=== PATIENT | male | born 1950 | race Caucasian/White ===

== ENCOUNTER → 2017-04-16 | Outpatient (CLI) | payer OTHER, MEDICARE | LOC: CIMAGING 14:37 | PROVIDERS: ATTEND Internal Medicine | DX: R05 Cough (principal); R09.89 Other specified symptoms and signs involving the circulatory and respiratory systems; N28.9 Disorder of kidney and ureter, unspecified; Z85.46 Personal history of malignant neoplasm of prostate | CPT/HCPCS: 71046-PO ==

== ENCOUNTER → 2017-05-07 | Outpatient (CLI) | payer OTHER, MEDICARE | PROVIDERS: ATTEND Internal Medicine | DX: R13.10 Dysphagia, unspecified (principal); R05 Cough; R09.89 Other specified symptoms and signs involving the circulatory and respiratory systems; I10 Essential (primary) hypertension; Z85.46 Personal history of malignant neoplasm of prostate | CPT/HCPCS: 74230; 92611; G8996; G8997; G8998 ==

== ENCOUNTER 2018-06-11 05:27 | Observation (INO) | payer OTHER, MEDICARE ==
--- NOTE | 2018-06-10 16:47 | PDHPUP ---
History & Physical Update H&P update statement: This history and physical update is based on an assessment of the patient which was completed after admission or registration (within 24 hours), but prior to the surgery/procedure. H&P update: H&P reviewed & patient examined, no change in patient's condition since H&P completed
[2018-06-11] MEDS ORDERED: ceFAZolin 2 GM/DEXTROSE 100 ML IV ONE (05:34)
[2018-06-11] MEDS ORDERED: LR 1,000 ML IV ONE (05:38)
[2018-06-11] MEDS ORDERED: BUPIVACAINE 0.5% 30 ML SDV ONE (06:55)
[2018-06-11] MEDS ORDERED: ROCURONIUM 100 MG/10 ML VIAL ONE (07:06)
[2018-06-11] MEDS ORDERED: fentaNYL 100 MCG/2 ML INJ ONE ×2 (07:06)
[2018-06-11] MEDS ORDERED: ONDANSETRON 4 MG/2 ML VIAL ONE (07:07)
[2018-06-11] MEDS ORDERED: SUGAMMADEX SODIUM 200 MG/2 ML VIAL IVP ONE (07:07)
[2018-06-11] MEDS ORDERED: DEXAMETHASONE 4 MG/ML VIAL ONE (07:07)
[2018-06-11] MEDS ORDERED: PROPOFOL 200 MG/20 ML VIAL ONE (07:07)
[2018-06-11] MEDS ORDERED: LIDOCAINE 2% 2 ML INJ ONE ×2 (07:08)
[2018-06-11] MEDS ORDERED: PHENYLEPHRINE 10 MG/ML SDV ONE (07:13)
[2018-06-11] MEDS ORDERED: HYDROCODONE/APAP 5/325 TAB PO PRN (08:00)
[2018-06-11] MEDS ORDERED: NALOXONE HCL 0.4 MG/ML INJ IVP PRN ×2 (08:00→10:17)
[2018-06-11] MEDS ORDERED: fentaNYL 100 MCG/2 ML INJ IVP PRN (08:00)
[2018-06-11] MEDS ORDERED: ALBUTEROL 3 ML DEYVIAL IH PRN (08:00)
[2018-06-11] MEDS ORDERED: PHENYLEPHRINE HCL 100 MCG/ML SYR IVP PRN (08:00)
[2018-06-11] MEDS ORDERED: LABETALOL HCL 5 MG/ML 20 ML MDV IVP PRN (08:00)
[2018-06-11] MEDS ORDERED: ACETAMINOPHEN 500 MG TAB PO PRN (08:00)
[2018-06-11] MEDS ORDERED: ONDANSETRON 4 MG/2 ML VIAL IVP PRN ×2 (08:00→10:14)
[2018-06-11] MEDS ORDERED: PROMETHAZINE HCL 25 MG/ML INJ IVP PRN (08:00)
[2018-06-11] MEDS ORDERED: HYDROmorphONE/DILAUDID 1 MG/ML INJ IVP PRN (08:00)
[2018-06-11] MEDS ORDERED: DIAZEPAM 5 MG/ML 1 ML SYR IVP PRN (08:00)
[2018-06-11] MEDS ORDERED: METOCLOPRAMIDE 10 MG/2 ML VIAL IVP PRN (08:00)
[2018-06-11] MEDS ORDERED: oxyCODONE IR 5 MG TAB PO PRN (08:00)
--- NOTE | 2018-06-11 08:00 | PDANEPAE ---
ANE History of Present Illness robotic prostatectomy ANE Past Medical History - Cardiovascular History Hx Hypertension: Yes Hx Arrhythmias: No Hx Chest Pain: No Hx Coronary Artery / Peripheral Vascular Disease: No Hx CHF / Valvular Disease: No Hx Palpitations: No - Pulmonary History Hx COPD: No Hx Asthma/Reactive Airway Disease: No Hx Recent Upper Respiratory Infection: No Hx Oxygen in Use at Home: No Hx Sleep Apnea: No Sleep Apnea Screening Result - Last Documented: Positive - Neurologic History Hx Cerebrovascular Accident: No Hx Seizures: No Hx Dementia: No - Endocrine History Hx Diabetes: No - Renal History Hx Renal Disorders: No - Liver History Hx Hepatic Disorders: No - Neurological & Psychiatric Hx Hx Neurological and Psychiatric Disorders: No - Cancer History Hx Cancer: Yes Cancer History Comment: new dx prostate cancer - Congenital Disorder History Hx Congenital Disorders: No - GI History Hx Gastrointestinal Disorders: No - Other Health History Other Health History: none - Chronic Pain History Chronic Pain: Yes (knees) - Surgical History Prior Surgeries: 2010 acl repaired. 2016 right shoulder ANE Review of Systems Review of Systems: - Exercise capacity METS (RN): 6 METS ANE Patient History - Allergies Allergies/Adverse Reactions: No Known Allergies Allergy (Verified 05/12/18 12:18) - Home Medications Home medications: home medication list seen and reviewed Home Medications: Chlorthalidone [Chlorthalidone 25 mg (*)] 12.5 mg PO DAILY 05/04/18 [Last Taken 06/10/18] Irbesartan [Avapro 150 mg (*)] 300 mg PO DAILY 05/04/18 [Last Taken 06/10/18] Multivitamins [Multivitamin (*)] 1 each PO DAILY 05/04/18 [Last Taken 05/21/18] amLODIPine BESYLATE [Norvasc 10 mg (*)] 10 mg PO HS 05/04/18 [Last Taken ] Levothyroxine [Synthroid 50 mcg (*)] 50 tab PO DAILY 06/10/18 [Last Taken 1 Day Ago ~06/09/18] - NPO status NPO Since - Liquids (Date): 06/10/18 NPO Since - Liquids (Time): 21:00 NPO Since - Solids (Date): 06/09/18 NPO Since - Solids (Time): 00:01 - Smoking Hx Smoking Status: Never smoked - Family Anes Hx Family Hx Anesthesia Complications: none ANE Labs/Vital Signs - Vital Signs Blood Pressure: 104/70 Heart Rate: 65 Respiratory Rate: 16 O2 Sat (%): 90 Height: 167.64 cm Weight: 73.936 kg ANE Physical Exam - Airway Neck exam: FROM Mallampati Score: Class 1 Mouth exam: normal dental/mouth exam - Pulmonary Pulmonary: no respiratory distress - Cardiovascular Cardiovascular: regular rate and rhythym - ASA Status ASA Status: II ANE Anesthesia Plan Anesthesia Plan: general endotracheal anesthesia Regional Anesthesia: TAP block Urgent/Emergent Case: Karl rahman completed preop but documented later for safe timely pt care
--- NOTE | 2018-06-11 08:00 | POSTANESTH ---
Post Anesthetic Evaluation Cardiovascular Status: Normal, Stable Respiratory Status: Normal, Stable Level of Consciousness/Mental Status: Can Participate in Eval, Mildly Sleepy, Arousable Pain Control: Adequate, Prn Tx Ordered Nausea/Vomiting Control: Adequate, Prn Tx Ordered Complications Possibly Related to Anesthesia: None Noted
[2018-06-11] MEDS ORDERED: HYDROmorphONE/DILAUDID 2 MG/ML INJ ONE (08:17)
[2018-06-11] MEDS ORDERED: ROPIVACAINE HCL 150 MG/30 ML INJ ONE (09:05)
[2018-06-11] MEDS ORDERED: THROMBIN(HUM PLAS)/FIBRINOG/CA 5 ML VIAL TP ONE (09:29)
--- NOTE | 2018-06-11 10:11 | POSTOPPROG ---
Post Op Note Date of Operation: 06/11/18 (dictated) Surgeon: Gordy Cota Metal Die Finisher: Melissa Anesthesia: GET(General Endotracheal), Other (Specify) (TAP) Pre-op Diagnosis: prostate cancer Procedure: RA-RRP and PLND Inf/Abcess present in the surg proc area at time of surgery?: No EBL: 50-100 Drains: Param Stanford Specimen(s): prostate and nodes
[2018-06-11] MEDS ORDERED: ONDANSETRON DISINTEGRATING 4 MG TAB PO PRN (10:14)
[2018-06-11] MEDS ORDERED: ACETAMINOPHEN 325 MG TAB PO PRN (10:14)
[2018-06-11] MEDS ORDERED: ZOLPIDEM TARTRATE 5 MG TAB PO PRN (10:14)
[2018-06-11] MEDS ORDERED: HYDROmorphONE/DILAUDID 6 MG/30 ML PCA IV PRN (10:17)
--- NOTE | 2018-06-11 10:33 | GOP ---
[f rep st] OPERATIVE REPORT DATE OF OPERATION: 06/11/2018 SURGEON: Gordy Cota MD PROJECTS MANAGER: Vero Torres CFA. ANESTHESIA: Postop anesthesia was a small amount of local, but then he had a TAP procedure provided by the anesthesiologist. PREOPERATIVE DIAGNOSIS: Prostate cancer with a PSA just above 10. POSTOPERATIVE DIAGNOSIS: Prostate cancer with a PSA just above 10. PROCEDURE PERFORMED: Radical robotic-assisted prostatectomy and bilateral pelvic lymph node dissecti on. FINDINGS: SPECIMENS: Specimens sent. ESTIMATED BLOOD LOSS: 150 cc. DESCRIPTION OF PROCEDURE: After undergoing general anesthesia, and being prepped and draped with a n ormal timeout, we placed a Veress needle in the supraumbilical site and insufflated his abdomen to 15 mmHg pressure. Then at that point, the camera port, 3 robot arm ports, and an assistant mechanic port were p laced, all under direct vision in the standard port profile. Inspection revealed he had some colonic adhesions into the pelvis, and those were taken down sharply. I could identify the vas deferens as they coursed over the pelvic brim. The rectum was pulled out of the pelvis gently and stationed ther e with a ProGrasp, just without grasping. Then, I incised the peritoneum, and identified the ampulla and vas deferens on the right and left sides. They were divided. I then identified the seminal ves icles, and developed a plane between the rectum and the prostate posteriorly, and then the plane betw een the seminal vesicles and the bladder anteriorly. Hemostasis was provided with Hem-o-reggie. At nancy t point, there was no suggestion of injury to the colon and no cystotomy on this dissection. I dropp ed the bladder down in a normal fashion, incised the endopelvic fascia on the right and left sides, a nd identified the puboprostatic ligaments, which were taken down sharply. The deep dorsal vein was l igated with two #0 Vicryl sutures in an M-stitch technique. Then, I went to the bladder neck. I did de-fat the anterior part of the prostate. Then at that point, I incised the bladder neck anteriorly and identified the catheter. He had just a button of intravesical lobe. That was dissected off and remained with the specimen. The plane between the bladder and the prostate was dissected out. I th en managed the right and left vascular bundles. I attempted to preserve the left vascular bundle on the left side, but, because of the MRI findings, I went a bit lateral and took part of the neurovascu lar bundle on the right. Hemostasis was provided with Hem-o-reggie. I identified the anterior prostate apex and divided that, and divided the urethra. That was brought out of this operative site. Hemos tasis was noted after decreasing the intraabdominal pressure. Then at that point, a Diallo stitch of 3-0 Monocryl was used to perform that. Then, I used a 3-0 Monocryl to do the urethrovesical anastomo sis, bridged with a Barnett catheter, irrigated, and noted it to be watertight without tension. Then, because of the right findings, he did have some inflammation on the right side, so I elected to do a pelvic lymph node dissection using the margin of the mid aspect of the external iliac vein. The dept h of the dissection was the obturator nerve. Hemostasis and lymphostasis were provided with Hem-o-lo k. The right and left specimens were sent separately. At the end of the procedure, there was no ble eding identified. Bladder irrigated free without any extravasation. A Param-Stanford drain was place d to the space of Retzius and brought out through the 8 mm camera port. I then closed the assistant mechanic port with a fascial closure device with 0 Vicryl. I opened the camera port to the point I could deliv er the specimen out. I closed the linea alba, anterior rectus sheath, and peritoneum with a running 0 Vicryl. Then, hemostasis was noted. Subcutaneous tissue was approximated with 4-0 Monocryl. The drain was stationary with a 3-0 silk suture. COMPLICATIONS: None. DRAINS: Catheter draining well. DISPOSITION: He will be admitted for postop care. Specimens sent to Pathology. I will discuss the findings with his . /[id number]/MODL
[2018-06-11] MEDS: oxyCODONE IR 5 MG TAB PO PRN (12:32)
[2018-06-11] MEDS: ACETAMINOPHEN 325 MG TAB PO SCH ×2 (12:37→20:53)
[2018-06-11] MEDS: D5W 1/2 NS 1,000 ML IV SCH ×2 (12:44→22:48)
[2018-06-11] MEDS: MULTIVITAMINS 1 EACH TAB PO SCH (14:20)
[2018-06-11] MEDS: IRBESARTAN 150 MG TAB PO SCH (14:20)
[2018-06-11] MEDS: CHLORTHALIDONE 25 MG TAB PO SCH (14:20)
--- NOTE | 2018-06-11 16:04 | SOAPPROG ---
SOAP Progress Note Assessment/Plan: Assessment: Adenocarcinoma of prostate Acute PO exam Plan: continue care, will see in AM 06/11/18 16:03 Subjective: walked and doing well Objective: Vital Signs Temp Pulse Resp BP Pulse Ox 36.8 C 82 18 109/76 92 06/11/18 12:00 06/11/18 13:05 06/11/18 13:05 06/11/18 14:20 06/11/18 13:05 06/10/18 06/11/18 06/12/18 05:59 05:59 05:59 Intake Total 1400 Output Total 465 Balance 935 Physical Exam - Physical Exam General Appearance: alert Respiratory: No respiratory distress Cardiac/Chest: regular rate, rhythm Abdomen: non-tender Back: No CVA tenderness Neuro/Psych: alert, oriented x 3 ICD10 Worksheet Patient Problems: Problems Problem Status Onset Adenocarcinoma of prostate Acute
[2018-06-12] MEDS: ACETAMINOPHEN 325 MG TAB PO SCH ×3 (00:44→12:00)
[2018-06-12 05:22] LABS: PLATELET COUNT 242 10^3/uL (150-400)
[2018-06-12] MEDS ORDERED: LEVOTHYROXINE 50 MCG TAB PO SCH (06:00)
[2018-06-12] MEDS: MULTIVITAMINS 1 EACH TAB PO SCH ×2 (08:10→08:24)
[2018-06-12] MEDS: IRBESARTAN 150 MG TAB PO SCH (08:11)
[2018-06-12] MEDS: CHLORTHALIDONE 25 MG TAB PO SCH (08:12)
--- NOTE | 2018-06-12 09:21 | SOAPPROG ---
SOAP Progress Note Assessment/Plan: Assessment: Adenocarcinoma of prostate Acute PO 1 exam Plan: continue care,consider DC later 06/12/18 09:20 Subjective: doing well Objective: Vital Signs Temp Pulse Resp BP Pulse Ox 36.7 C 72 16 94/66 L 93 06/12/18 07:35 06/12/18 07:35 06/12/18 07:35 06/12/18 07:35 06/12/18 07:35 Laboratory Results 06/12/18 04:30 06/12/18 04:30 06/11/18 06/12/18 06/13/18 05:59 05:59 05:59 Intake Total 2180 250 Output Total 2815 Balance -635 250 Physical Exam - Physical Exam General Appearance: alert Neck: supple Respiratory: No respiratory distress Cardiac/Chest: regular rate, rhythm Abdomen: non-tender Back: No CVA tenderness Skin: warm/dry Extremities: No calf tenderness, No Sherry's sign Neuro/Psych: alert, oriented x 3 ICD10 Worksheet Patient Problems: Problems Problem Status Onset Adenocarcinoma of prostate Acute
[2018-06-12 11:16] VITALS: BP 101/74
[2018-06-12] MEDS: oxyCODONE IR 5 MG TAB PO PRN ×2 (11:59→15:38)
--- NOTE | 2018-06-12 16:20 | ASDISCHSUM ---
Discharge Information Plan Status:Home with No Needs Medically Cleared to Leave:06/12/2018 Discharge Date:06/12/2018 CM D/C Disposition:Home, Routine, Self-Care ADT D/C Disposition: Projected Discharge Date:06/12/2018 Transportation at D/C:Family Discharge Delay Reason: Follow-Up Date:06/12/2018 Discharge Slot: Final Diagnosis: Placement Information Patient Contact Information Contact Name:VENTURA Relationship: Address:[address] Work Phone: City:[place] Phone: State/Zip Code:[place] [address] Email: Financial Information Financial Class:Medicare Primary Plan Desc:MEDICARE OUTPATIENT Primary Plan Number:[id number] Secondary Plan Desc:JOANNE/[employer] SUPPLEMENT Secondary Plan Number:[id number] Assessment Information LACE LACE Length of stay for Answers: Less than 1 day current admission Acuity / Level of Answers: No Care: Did the patient have an inpatient admission? Comorbidities - select Answers: Any tumor (including all that apply lymphoma or leukemia) Opioid dependence / Chronic pain Other Notes: HTN # of Emergency department Answers: 0 visits in the last 6 months Score: 7 Date Signed: 06/12/2018 04:19 PM Electronically Signed By:STEVIE Rocha Case Management Discharge Plan Note Case Management Discharge Discharge Order Complete? Answers: Yes Patient to Obtain Answers: via Family Medications Transportation Arranged Answers: Family/Friends Discharge Comments Notes: Pt is s/p a planned prostatectomy for prostate CA. He is discharging home independently with his and no CM needs. Date Signed: 06/12/2018 04:18 PM Electronically Signed By:STEVIE Rocha Intervention Information Intervention Type:*HIDALGO-Signed Date of Service:06/11/2018 02:28 PM Patient Type:Observation Staff Member:Malu Baum Hours: Discipline: Severity: Comment:
--- NOTE | 2018-06-12 18:02 | GDS ---
[f rep st] DISCHARGE SUMMARY PREOPERATIVE DIAGNOSIS: Prostate cancer. POSTOPERATIVE DIAGNOSIS: Prostate cancer. HISTORY: This is a pleasant male who was evaluated in our office for an elevated PSA. He was found have prostate cancer on workup, and after full discussion of his options, he elected to undergo radic al robotic-assisted prostatectomy with bilateral pelvic lymph node dissection. He underwent this wit hout difficulty. He is being discharged home in good condition. He is to follow up in our office in approximately 10 days for a catheter removal. /[id number]/MODL
== END 2018-06-12 16:38 | disposition home or self-care (01) ==
LOC: F3E 05:27 → INTOOBSV 05:27 → F1N 07:23
PROVIDERS: ADMIT Specialist; ATTEND Specialist
PROC: 07BC4ZX Excision of Pelvis Lymphatic, Percutaneous Endoscopic Approach, Diagnostic (ICD-10-PCS; principal; 2018-06-11 07:15)
PROC: 0VT04ZZ Resection of Prostate, Percutaneous Endoscopic Approach (ICD-10-PCS; principal; 2018-06-11 07:15)
PROC: 8E0W4CZ Robotic Assisted Procedure of Trunk Region, Percutaneous Endoscopic Approach (ICD-10-PCS; principal; 2018-06-11 07:15)
DX: C61 Malignant neoplasm of prostate (principal); I10 Essential (primary) hypertension
CPT/HCPCS: 55866; 88305; 88309; J0690; J1100; J1170; J2370; J2405; J2704; J2795; J3010